=== PATIENT | male | born 1935 | race Caucasian/White ===

== ENCOUNTER 2023-07-28 19:34 | Observation (INO) | payer MEDICARE, BC, OTHER ==
[2023-07-28 20:32] LABS: #Eosinphils 0.1 10x3/uL (0.0-0.5); #Neutrophils 14.8 10x3/uL (1.5-8.4); %Basophils 0.2 % (0.0-2.0); %Eosinophils 0.7 % (0.0-6.0); %Monocytes 5.6 % (0.0-10.0); Hematocrit 40.9 % (38.8-50.0); Hemoglobin 14.1 g/dL (13.5-17.5); Mean Corpuscular HGB CONC 34.5 g/dL (32.0-36.0); Mean Corpuscular Hemoglobin 32.3 pg (27.0-33.0); Mean Corpuscular Volume 93.8 fl (81.2-95.1); Mean Platelet Volume 9.2 fl (7.4-10.4); Platelet Count 238 10x3/uL (150-450); RBC Distribution Width 13.1 % (11.5-14.5); Red Blood Cell (RBC) Count 4.36 10x6/uL (4.32-5.72); White Blood Cell (WBC) Count 17.2 10x3/uL (3.5-10.5)
[2023-07-28 20:41] LABS: PTT 26.5 sec (22.0-33.0); Prothrombin Time 10.9 sec (9.5-12.1)
[2023-07-28 20:45] LABS: ALT (SGPT) 42 U/L (8-55); AST (SGOT) 28 U/L (5-34); Albumin 4.7 g/dL (3.4-4.8); Alkaline Phosphatase 46 U/L (40-110); Anion Gap 16 mmol/L (10-20); BUN (Urea Nitrogen) 21 mg/dL (8.4-25.7); Bilirubin, Total 0.5 mg/dL (0.2-1.2); Calc. Creatinine Clearance 0 mL/min (70-130); Calcium 9.2 mg/dL (7.8-10.44); Carbon Dioxide 20 mmol/L (23-31); Chloride 105 mmol/L (98-107); Estimated GFR 77; Globulin 2.4 g/dL (2.4-3.5); Glucose 104 mg/dL (83-110); Potassium 4.4 mmol/L (3.5-5.1); Protein, Total 7.1 g/dL (5.8-8.1); Sodium 137 mmol/L (136-145)
[2023-07-28 20:52] LABS: Troponin I Less than 0.010 ng/mL (< 0.028)
[2023-07-28 22:04] LABS: Bilirubin Neg (Negative); Blood, Urine 25 (Negative); Clarity Clear (Clear); Glucose, Urine (Dipstick) Normal (Negative); Ketone, Urine Negative (Negative); Leukocyte Negative (Negative); Nitrite Negative (Negative); Protein, Urine (Dipstick) Negative (Neg-Trace); Urobilinogen Normal mg/dL (Less than 2)
[2023-07-28 22:06] LABS: Bacteria/HPF None Seen HPF (None Seen); CAUTI Indications for Culture < 2yrs of age; RBC/HPF 0-3 HPF (0-3); Squamous Epithelial 0-3 HPF (0-3); WBC/HPF None Seen HPF (0-3)
[2023-07-28 22:09] LABS: Urine Culture Reflex Yes Yes
[2023-07-28] MEDS ORDERED: Ondansetron PF 4 MG/2 ML Vial ONE (23:04)
[2023-07-29 00:23] LABS: SARS-CoV-2 NAA Rapid Test Not Detected (NotDetected)
[2023-07-29] MEDS ORDERED: Promethazine HCl 25 MG in Sodium Chloride 0.9% 50 ML IVPB ONE (01:45)
[2023-07-29] MEDS ORDERED: Acetaminophen 325 MG TAB PO PRN (02:19)
[2023-07-29] MEDS ORDERED: Promethazine HCl 12.5 MG in Sodium Chloride 0.9% 50 ML IVPB PRN ×2 (02:23→08:46)
[2023-07-29] MEDS: D5 1/2 NS w/10 mEq KCl 1,000 ML/1,000 ML BAG IV SCH ×3 (03:37→20:19)
[2023-07-29] MEDS ORDERED: Acetaminophen 325 MG TAB ONE (03:56)
[2023-07-29 05:01] LABS: #Eosinphils 0.2 10x3/uL (0.0-0.5); #Monocytes 0.4 10x3/uL (0.0-1.1); #Neutrophils 8.5 10x3/uL (1.5-8.4); %Basophils 0.1 % (0.0-2.0); %Eosinophils 1.9 % (0.0-6.0); %Lymphocytes 3.7 % (18.0-47.0); %Monocytes 4.6 % (0.0-10.0); %Neutrophils 89.6 % (40.0-75.0); Hematocrit 36.7 % (38.8-50.0); Hemoglobin 12.6 g/dL (13.5-17.5); Mean Corpuscular HGB CONC 34.3 g/dL (32.0-36.0); Mean Corpuscular Hemoglobin 31.9 pg (27.0-33.0); Mean Corpuscular Volume 92.9 fl (81.2-95.1); Mean Platelet Volume 9.2 fl (7.4-10.4); Platelet Count 174 10x3/uL (150-450); Red Blood Cell (RBC) Count 3.95 10x6/uL (4.32-5.72); White Blood Cell (WBC) Count 9.5 10x3/uL (3.5-10.5)
[2023-07-29 05:09] LABS: Anion Gap 17 mmol/L (10-20); BUN (Urea Nitrogen) 21 mg/dL (8.4-25.7); Calc. Creatinine Clearance 0 mL/min (70-130); Calcium 8.3 mg/dL (7.8-10.44); Carbon Dioxide 16 mmol/L (23-31); Chloride 106 mmol/L (98-107); Estimated GFR 86; Glucose 125 mg/dL (83-110); Magnesium 1.6 mg/dL (1.6-2.6); Potassium 3.8 mmol/L (3.5-5.1); Sodium 135 mmol/L (136-145)
[2023-07-29] MEDS: Levothyroxine Sodium 25 MCG TAB PO SCH (08:30)
[2023-07-29] MEDS ORDERED: Ondansetron PF 4 MG/2 ML Vial IVP PRN (08:45)
[2023-07-29] MEDS ORDERED: Ergocalciferol 1.25 MG(50,000 UNITS) CAP PO SCH (09:00)
[2023-07-29] MEDS ORDERED: Apixaban 5 MG TAB ONE (09:27)
[2023-07-29] MEDS ORDERED: Amiodarone 200 MG TAB ONE (09:28)
[2023-07-29] MEDS: Amiodarone 200 MG TAB PO SCH (09:53)
[2023-07-29] MEDS: Apixaban 5 MG TAB PO SCH ×2 (09:54→20:22)
[2023-07-29] MEDS: Loratadine 10 MG TAB PO SCH (09:54)
[2023-07-29 16:30] VITALS: BMI 31.1
[2023-07-29] MEDS ORDERED: Atorvastatin Calcium 10 MG TAB PO SCH (21:00)
[2023-07-30] MEDS: D5 1/2 NS w/10 mEq KCl 1,000 ML/1,000 ML BAG IV SCH ×2 (01:46→10:15)
[2023-07-30 04:29] LABS: Lactic Acid 1.4 mmol/L (0.5-2.2)
[2023-07-30 04:33] LABS: Anion Gap 13 mmol/L (10-20); BUN (Urea Nitrogen) 10 mg/dL (8.4-25.7); Calc. Creatinine Clearance 98 mL/min (70-130); Calcium 7.7 mg/dL (7.8-10.44); Carbon Dioxide 20 mmol/L (23-31); Chloride 104 mmol/L (98-107); Estimated GFR 88; Glucose 114 mg/dL (83-110); Potassium 3.6 mmol/L (3.5-5.1); Sodium 133 mmol/L (136-145)
[2023-07-30 04:37] LABS: #Eosinphils 0.1 10x3/uL (0.0-0.5); #Monocytes 0.7 10x3/uL (0.0-1.1); #Neutrophils 3.9 10x3/uL (1.5-8.4); %Eosinophils 1.6 % (0.0-6.0); %Lymphocytes 17.8 % (18.0-47.0); %Monocytes 11.8 % (0.0-10.0); %Neutrophils 68.6 % (40.0-75.0); Hematocrit 31.7 % (38.8-50.0); Hemoglobin 10.9 g/dL (13.5-17.5); Mean Corpuscular HGB CONC 34.4 g/dL (32.0-36.0); Mean Corpuscular Hemoglobin 32.1 pg (27.0-33.0); Mean Corpuscular Volume 93.2 fl (81.2-95.1); Platelet Count 145 10x3/uL (150-450); RBC Distribution Width 13.2 % (11.5-14.5); White Blood Cell (WBC) Count 5.6 10x3/uL (3.5-10.5)
[2023-07-30] MEDS: Levothyroxine Sodium 25 MCG TAB PO SCH (06:45)
[2023-07-30] MEDS: Apixaban 5 MG TAB PO SCH (09:02)
[2023-07-30] MEDS: Amiodarone 200 MG TAB PO SCH (09:02)
[2023-07-30] MEDS: Loratadine 10 MG TAB PO SCH (09:02)
[2023-07-30 13:10] VITALS: BP 138/61; TEMP 98.6
== END 2023-07-30 16:40 | disposition home or self-care (01) ==
LOC: CSHERS 19:34 → CSHERHOLD 07-29 01:33 → CSHTELE 07-29 16:04
PROVIDERS: ADMIT Family Medicine; ATTEND Physician Assistant
DX: R55 Syncope and collapse (principal); I48.0 Paroxysmal atrial fibrillation; E03.9 Hypothyroidism, unspecified; K21.9 Gastro-esophageal reflux disease without esophagitis; E78.5 Hyperlipidemia, unspecified; K52.9 Noninfective gastroenteritis and colitis, unspecified; E87.20 Acidosis, unspecified; R39.11 Hesitancy of micturition; Z90.49 Acquired absence of other specified parts of digestive tract; Z79.01 Long term (current) use of anticoagulants; Z79.890 Hormone replacement therapy; Z79.899 Other long term (current) drug therapy
CPT/HCPCS: 0240U; 74022; 80048 ×2; 80053; 81001; 82962; 83605 ×2; 83690; 83735; 84484; 85025 ×3; 85610; 85730; 87086; 93005; 96375; 96376 ×2; G0378 ×3; 36415; 36416; 93010; J2405; J3480